=== PATIENT | female | born 1985 | race Caucasian/White ===

== ENCOUNTER 2020-08-13 19:28 | Emergency (ER) | payer MEDICARE, MEDICAID, SELFPAY ==
--- NOTE | 2020-08-13 19:30 | ED.GENADULT ---
HPI - General Adult General Chief complaint: Skin/Abscess/Foreign Body Stated complaint: swollen left hand Time Seen by Provider: 08/13/20 19:30 Source: patient Mode of arrival: ambulatory Limitations: no limitations History of Present Illness HPI narrative: 35-year-old female patient presents to the [facility] with complaints of a swollen left hand with erythema and warmth. Patient states that it started this morning when she woke up. Patient is type II diabetic but currently not been treated for this. Patient states that her A1c was pretty good but last was checked was a couple of years ago. Has not seen a doctor in a couple years due to the fact that she is recently moved to [place] from [place]. Patient states that she is also had a wound to her left upper arm for a while now . Patient states she was seen at [facility] emergency department yesterday however she states that they did not check any labs or do anything for her they simply looked at the wound told her she needed skin grafts and discharged her. Patient states she was not discharged home with any antibiotics. Denies any fevers body aches or chills that she is aware of. Related Data Home Medications Medication Instructions Recorded Confirmed No Home Medications 08/13/20 08/13/20 Allergies Allergy/AdvReac Type Severity Reaction Status Date / Time No Known Allergies Allergy Verified 08/13/20 19:45 Review of Systems Review of Systems: Narrative: CONSTITUTIONAL: Denies fever, chills, or sweats. EYES: Denies visual changes, redness, or discharge. ENT: Denies rhinorrhea, congestion, sore throat, or otalgia. CARDIOVASCULAR: Denies chest pain, palpitations, or edema. RESPIRATORY: Denies cough or dyspnea. GASTROINTESTINAL: Denies abdominal pain, nausea, vomiting, or diarrhea. GENITOURINARY: Denies dysuria or hematuria. SKIN: Denies rash or itching. Positive redness swelling to left hand with a chronic wound to the left forearm MUSCULOSKELETAL: Denies back pain, joint pain, or myalgia. NEUROLOGIC: Denies headache, numbness, or weakness. PSYCHIATRIC: Denies anxiety or depression. [facility] Past Medical History Medical History (Updated 08/13/20 @ 20:01 by ANTWAN Post) Diabetes Gout Surgical History Surgical History (Updated 08/13/20 @ 19:43 by ANTWAN Post) H/O eye surgery History of History of facial surgery Due to dog bite Comments At the time of my signature I agree with nursing past medical history, surgical, social, and family history. There is no relevant family history pertinent to the presenting complaint. Exam Narrative: Exam Narrative: GENERAL: Well-appearing, well-nourished, and in no acute distress. HEAD: Normocephalic, atraumatic. EYES: PERRLA and EOMI. ENT: Nares clear, no rhinorrhea or epistaxis. Mucous membranes moist. NECK: Supple. No lymphadenopathy CHEST: Clear to auscultation. No respiratory distress. HEART: Regular rate and rhythm. No murmur heard. Normal peripheral pulses. ABDOMEN: Soft, nontender, nondistended, normal active bowel sounds. EXTREMITIES: Normal range of motion. No edema. SKIN: Warm, dry, no rash. Patient has approximately 14.5 x 8 cm ulcer noted to the posterior left forearm. There is some surrounding erythema as well as some swelling, edema, erythema and warmth noted to the left hand. NEURO: No focal deficits. Alert and oriented x3. Course Vital Signs Vital signs: Vital Signs Temperature 36.6 C 08/13/20 19:36 Pulse Rate 76 08/13/20 19:36 Respiratory Rate 18 08/13/20 19:36 Blood Pressure 144/63 H 08/13/20 19:36 Pulse Oximetry 97 08/13/20 19:36 Temperature 36.6 C 08/13/20 19:36 Pulse Rate 76 08/13/20 19:36 Respiratory Rate 18 08/13/20 19:36 Blood Pressure 144/63 H 08/13/20 19:36 Pulse Oximetry 97 08/13/20 19:36 Vital signs reviewed Transfer Transfered to: [place] Transportation: Other (Private vehicle) Transfer rationale: Diabetic u
[2020-08-13 19:36] VITALS: BP 144/63; PULSE 76; RESP 18; TEMP 36.6; O2SAT 97
[2020-08-13 19:53] LABS: Glucose Point of Care 91 (65-105)
== END 2020-08-13 19:59 | disposition short-term general hospital (02) ==
PROVIDERS: Emergency Provider Nurse Practitioner Family
DX: E11.622 Type 2 diabetes mellitus with other skin ulcer (principal); L98.499 Non-pressure chronic ulcer of skin of other sites with unspecified severity; M10.9 Gout, unspecified; L03.114 Cellulitis of left upper limb
CPT/HCPCS: 82948; 99212; G0463

== ENCOUNTER 2020-08-14 13:54 | Emergency (ER) | payer MEDICARE, MEDICAID, SELFPAY ==
--- NOTE | ~2020-08-14 | XR_ITS ---
EXAMINATION: XR hand LT min 3V EXAM DATE: 08/14/2020 15:39 INDICATION: No known recent injury provided at this time. Pain of the left hand. TECHNIQUE: Left hand frontal, lateral and oblique projections obtained and reviewed. There is no celestine or study for comparison. FINDINGS: Left metacarpal bones are unremarkable. There are no acute fractures or dislocations ident ified. There is no subcutaneous gas. There is soft tissue swelling over the entire hand and wrist. There are no radiopaque foreign bodies. IMPRESSION: 1. Left hand exam without acute osseous findings. 2. Extensive soft tissue swelling. Reviewed, dictated and finalized at location A. 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
[2020-08-14 14:10] VITALS: BP 176/90; PULSE 70; RESP 20; TEMP 36.1; O2SAT 99
--- NOTE | 2020-08-14 15:24 | ED.GENADULT ---
HPI - General Adult General Chief complaint: Skin/Abscess/Foreign Body Stated complaint: arm lesion Time Seen by Provider: 08/14/20 14:04 Source: patient Mode of arrival: ambulatory Limitations: no limitations History of Present Illness HPI narrative: Patient is a 35-year-old female who presents to emergency department for evaluation of left hand pain and swelling for the last several days was seen at urgent care a day ago was advised to come to the ER did not tell today patient notes redness swelling and tenderness of the left hand worse with activity and movement mild pain patient notes history of chronic wounds to the bilateral forearms with history of IV drug abuse notes that she has not used intravenous drugs for the last 3 weeks and is currently in a methadone clinic patient denies fever chills nausea vomiting presents in no distress. Related Data Allergies Allergy/AdvReac Type Severity Reaction Status Date / Time No Known Allergies Allergy Verified 08/13/20 19:45 Review of Systems Review of Systems: All systems reviewed & are unremarkable except as noted in HPI and below PMFSH Past Medical History Medical History Diabetes Gout Surgical History Surgical History H/O eye surgery History of History of facial surgery Due to dog bite Social History Social History Gender identity (if verbalized by the patient): Female Exam Narrative: Exam Narrative: GENERAL: Well-appearing, obese, and in no acute distress. HEAD: Normocephalic, atraumatic. EYES: PERRLA and EOMI. ENT: Nares clear, no rhinorrhea or epistaxis. Mucous membranes moist. CHEST: Clear to auscultation. No respiratory distress. No wheezes rales or rhonchi HEART: Regular rate and rhythm. No murmur heard. Normal peripheral pulses. EXTREMITIES: Swelling with slight erythema of the right hand. Chronic ulcerations to the bilateral forearms no erythema or drainage. No lymphangitic streaking SKIN: Warm, dry, no rash. NEURO: No focal deficits. Alert and oriented x3. Neurovascularly intact. Capillary refill less than 2 seconds PSYCH: Normal mood and affect. Course Course Emergency Course: Patient presents with what appears to be cellulitis of the left hand patient does not want to stay in hospital noting that she has to leave will be given outpatient follow-up and antibiotics was given antibiotics in the emergency department no high risk changes in the blood work or imaging patient agrees with this plan and agrees to return if symptoms worsen Vital Signs Vital signs: Vital Signs Temperature 97.0 F L 08/14/20 14:10 Pulse Rate 70 08/14/20 14:10 Respiratory Rate 20 08/14/20 14:10 Blood Pressure 176/90 H 08/14/20 14:10 Pulse Oximetry 99 08/14/20 14:10 Temperature 97.0 F L 08/14/20 14:10 Pulse Rate 70 08/14/20 14:10 Respiratory Rate 20 08/14/20 14:10 Blood Pressure 176/90 H 08/14/20 14:10 Pulse Oximetry 99 08/14/20 14:10 Medical Decision Making MDM Narrative Medical decision making narrative: Patients injury or pain is consistent with musculoskeletal etiology. No signs of neurological or vascular compromise on exam. Compartments and tisues are soft without signs of compartment syndrome. Pain is felt appropriate for further evaluation on an outpatient basis. Patient afebrile nontoxic-appearing no distress will be treated outpatient for cellulitis Vital Signs Vital Signs: Vital Signs Temperature 97.0 F L 08/14/20 14:10 Pulse Rate 70 08/14/20 14:10 Respiratory Rate 20 08/14/20 14:10 Blood Pressure 176/90 H 08/14/20 14:10 Pulse Oximetry 99 08/14/20 14:10 Temperature 97.0 F L 08/14/20 14:10 Pulse Rate 70 08/14/20 14:10 Respiratory Rate 20 08/14/20 14:10 Blood Pressure 176/90 H 08/14/20 14:10 Pulse Oximetry 99
--- NOTE | 2020-08-14 15:49 | PC.NURSE ---
PT DIFFICULT STICK, ATTEMPTED IV WITHOUT SUCCESS, DEIDRE NELSON CONTACTED FOR ULTRASOUND IV PLACEMENT.
[2020-08-14 16:30] LABS: Basophils Percent Auto 0.3 % (0.2-1.2); Eosinophils Absolute Auto 0.2 K/mm3 (0-0.3); Eosinophils Percent Auto 1.6 % (0-4.4); Hematocrit 37.8 % (37.0-47.0); Hemoglobin 11.7 g/dL (12.0-15.0); Immature Granulocyte Absolute 0.06 K/mm3 (0.00-0.031); Immature Granulocyte Percent A 0.6 % (0-0.5); Lymphocytes Absolute Auto 1.46 K/mm3 (0.9-3.2); Lymphocytes Percent Auto 13.9 % (18.3-44.2); Mean Corpuscular Hemoglobin 25.4 pg (26-34); Mean Corpuscular Volume 82.2 fl (80-100); Monocytes Absolute Auto 0.4 K/mm3 (0.1-0.6); Monocytes Percent Auto 3.3 % (2.6-8.5); Neutrophils Absolute Auto 8.4 K/mm3 (1.3-6.7); Neutrophils Percent Auto 80.3 % (45.5-73.1); Platelet Count Result 334 k/mm3 (150-375); Red Cell Distribution Width 15.3 % (11.5-14.5); White Blood Count 10.5 K/mm3 (4.5-10.0)
[2020-08-14] MEDS: ceFAZolin 2 GM/D5W 50 ML 2 GM/50 ML BAG IVPB (16:30)
[2020-08-14 16:44] LABS: Anion Gap 5 mmol/L (8-16); Blood Urea Nitrogen 11 mg/dL (7-17); Calcium 8.6 mg/dL (8.4-10.2); Carbon Dioxide 35 mmol/L (22-30); Chloride 101 mmol/L (98-107); Estimated CRCL calculation 133 ml/min; Estimated Glomerular Filt Rate > 60; Glucose 133 mg/dL (65-105); Potassium 3.9 mmol/L (3.4-5.0); Sodium 141 mmol/L (137-145)
[2020-08-14 16:46] LABS: CRP 6.8 mg/dL (<1.0)
[2020-08-14 17:17] VITALS: BP 148/75; PULSE 92; RESP 18; O2SAT 100
== END 2020-08-14 17:22 | disposition home or self-care (01) ==
PROVIDERS: Emergency Medicine Emergency Medical Services; Emergency Provider Emergency Medicine
DX: L03.114 Cellulitis of left upper limb (principal); E11.9 Type 2 diabetes mellitus without complications; M10.9 Gout, unspecified
CPT/HCPCS: 36415; 73130; 80048; 85025; 86140; 96365; 99284; J0690

== ENCOUNTER 2024-12-25 13:17 | Emergency (ER) | payer MEDICARE, MEDICAID, SELFPAY ==
[2024-12-25 13:36] VITALS: BP 149/68; PULSE 85; RESP 20; TEMP 36.7; O2SAT 98
--- OUTSIDE RECORDS SUMMARY | 2024-12-25 14:09 | XMS_ITS | Clinical Summary ---
Author Organization [facility] Address [address] [place] [address] Phone Care Team Providers Care Construction Management Instructor Name Role Phone Provider, None Primary Care Provider Unavailabl e Allergies Active Allergy Reactions Criticality Noted Date Comments Duloxetine Hcl Anxiety 12/21/2020 Vancomycin Other (see Comments) 12/27/2022 red man syndrome Medications HYDROcodone-acet aminophen (NORCO) 5-325 MG Tablet Take 1-2 Tabs by mouth every 4 hours as needed for Pain. 20 Tab 7 Active Additional Information Patient not taking.Reported on 12/21/2020 METHADONE HCL PO Take 190 mg by mouth daily. Active silver sulfADIAZINE (SILVADENE) 1 % Cream Apply 2 times daily. Application Site:bileteral arm wound 400 g 0 Active FLUoxetine (PROzac) 20 MG Capsule Take 20 mg by mouth daily. 3 Active ALPRAZolam (XANAX) 0.5 MG Tablet 3 Active fluconazole (DIFLUCAN) 150 MG Tablet Take 150 mg by mouth. 5 Active Active Problems Problem Noted Date Diagnosed Date Hypertension 12/27/2022 Diabetes mellitus 12/27/2022 Asthma 12/27/2022 Anxiety 12/27/2022 Wound, open, arm, forearm, right, initial encoun ter 12/27/2022 Social History Tobacco Use Types Packs/Day Years Used Date Smoking Tobacco: Every Day Cigarettes Smokeless Tobacco: Never Alcohol Use Standard Drinks/Week Comments No 0 (1 standard drink = 0.6 oz pur e alcohol) Comments No Sex and Gender Information Value Date Recorded Sex Assigned at Not on file Legal Sex Female 10:35 PM CDT Gender Identity Not on file Sexual Orientation Not on file Last Filed Vital Signs Vital Sign Reading Time Taken Comments Blood Pressure 132/64 12/27/2022 2:15 PM CDT Pulse 66 12/27/2022 2:15 PM CDT Temperature 36.8 C (98.3 F) 12/27/2022 9:26 AM CDT Respiratory Rate 18 12/27/2022 9:26 AM CDT Oxygen Saturation 91% 12/27/2022 2:15 PM CDT Inhaled Oxygen Concentration - - Weight 156.2 kg (344 lb 5.7 oz) 12/27/2022 9:26 AM CDT Height 170.2 cm (5' 7 ) 12/27/2022 9:26 AM CDT Body Mass Index 53.93 12/27/2022 9:26 AM CDT Plan of Treatment Health Maintenance Due Date Last Done Comments Diabetes: Eye Exam 1984 Diabetes: Foot Exam 1984 Diabetes: Hemoglobin A1c 1984 Hepatitis C Virus (HCV) Screening 1984 Mammogram 1984 TdaP Immunization 1984 Hepatitis B Immunization (1 of 3 - 19+ 3-dose series) 2003 Pneumococcal Immunization Combined (1 of 2 - PCV) 2003 Pap Smear 2005 Cervical Cancer Screening (CCS) 2014 HPV/Cotest 2014 Diabetes: Nephropathy Screening 12/28/2023 3 Influenza Immunization (#1) 2024 SARS-COV-2 Immunization ( season) 2024 Discussion re Starting/Frequ ency of Mammograms 2024 Respiratory Syncytial Virus (RSV) Immunization (Adult) (1 - 1-dose 75+ series) 2059 DTaP/Tdap/Td Immunization Discontinued 03/05/2012 Meningococcal Immunization (ACWY) Aged Out No longer eligible based on patient's age to complete this topic Rotavirus Immunization Aged Out No lo nger eligible based on patient's age to complete this topic Procedures Procedure Name Priority Date/Time Associated Diagnosis Comments CMP (COMPREHENSIVE METABOLIC PANEL) STAT 12/27/2022 10:44 AM CDT from Last 3 Months or Most Recently Relevant to Health Maintenance Results * (ABNORMAL) Comprehensive Metabolic Panel (Cmp) [id number] (12/27/2022 10:44 AM CDT) SODIUM 132(L) 136 - 144 mmol/L 12/27/2022 11:05 AM CDT [facility] POTASSIUM 4.6 3.5 - 5.1 mmol/L 12/27/2022 11:05 AM CDT [facility] CHLORIDE 98(L) 100 - 110 mmol/L 12/27/2022 11:05 AM T [facility] CO2, VENOUS 28 22 - 32 mmol/L 12/27/2022 11:05 AM CDT [facility] ANION GAP 10.6 8.0 - 20.0 mmol/L 12/27/2022 11:05 AM CDT [facility] GLUCOSE 71 70 - 99 mg/dL 12/27/2022 11:05 AM CDT [facility] BUN 10 6 - 20 mg/dL 12/27/2022 11:05 AM T [facility] CREATININE, BLOOD 0.64 0.60 - 1.10 mg/dL 12/27/2022 11:05 AM T [facility] BUN/CREATININE RATIO 16 12 - 20 ratio 12/27/2022 11:05 AM T [facility] TOTAL PROTEIN 7.0 6.0 - 8.3 g/dL 12/27/2022 11:05 AM CDT [facility] ALBUMIN 3.5 3.5 - 5.2 g/dL 12/27/2022 11:05 AM T [facility] Comment: The colormetric methods used for the determination of Albumin may lead to falsely elevated test results in patients suffering from renal failure or insufficiency due to interference with other proteins. A/G RATIO 1.0 1.0 - 2.0 12/27/2022 11:[address] [facility] CALCIUM 9.0 8.9 - 10.3 mg/dL 12/27/2022 11:[address] [facility] T BILI <0.3 <=1.2 mg/dL 12/27/2022 11:[address] [facility] SGOT (AST) 17 <=32 U/L 12/27/2022 11:[address] [facility] SGPT (ALT) 13 <=41 U/L 12/27/2022 11:[address] [facility] ALKALINE PHOSPHATASE 82 35 - 105 U/L 12/27/2022 11:[address] [facility] GFR, ESTIMATED >60 >=60 12/27/2022 11:05 AM CDT [facility] Comment: Creatinine Clearance is the preferred criteria for selecting drug dose adjustments in renally impaired patients. The GFR is provided as additional pertinent clinical information. GFR is reported in mL/min/1.73 sq m. Calculation based on the Chronic Kidney Disease Epidemiology Collaboration (CKD- EPI) equation refit without adjustment for race. GFR, EST. >60 >=60 023 11:05 AM CDT [facility] GFR, EST. NONAFRICAN >60 >=60 12/27/2022 11:05 AM CDT [facility] Blood Venipuncture / Unknown 12/27/2022 10:44 AM CDT 12/27/2022 10:45 AM CDT us Mee Tai STAFF DESIGN ENGINEER, TECHNOLOGIES DIVISION CHAIR CHEMISTRY ORDERABLES Final Result [facility] [address] [place] [address] from Last 3 Months or Most Recently Relevant to Health Maintenance Additional Health Concerns Infection Onset Date Last Indicated MRSA 12/27/2022 12/27/2022 Insurance MEDICARE C [employer] Care Teams Construction Management Instructor Relationship Specialty Start Date End Date Provider, None [place] PCP - General 09/03/17
--- OUTSIDE RECORDS SUMMARY | 2024-12-25 14:10 | XMS_ITS | Clinical Summary ---
Author Organization [facility] Address [address] [place] [address] Care Team Providers Care Header Setup Operator Name Role Phone No, Physician Primary Care Provider [phone] Miscellaneous, Not In File Unavailable Unava ilable Allergies Active Allergy Reactions Criticality Noted Date Comments Clonazepam Other (See comments) Medium 02/04/2014 Drowsy Duloxetine Anaphylaxis,Nausea And Vomiting High 02/13/2011 Fish Containing Products Hives Medium 06/14/2018 Shellfish Containing Products Other (See comments) Reaction: Throat tightness, Medications methadone (DOLOPHINE) 10 mg tablet Take 32 tablets by mouth daily Active Active Problems Problem Noted Date Diagnosed Date Obstructive sleep apnea syndrome 05/13/2024 Sepsis with acute renal fail ure and tubular necrosis without septic shock 05/13/2024 IVELISSE (acute kidney injury) 05/10/2024 UTI (urinary tract infection) 05/10/2024 Drug withdrawal on maintenan ce opioid agonist therapy, no symptoms 05/09/2024 Cellulitis and abscess of leg 05/08/2024 Hepatitis C 05/08/2024 Open wound of multiple sites of left upper extremity without complication 11/03/2020 Abscess of antecubital fossa 10/10/2018 Assessment & Plan (10/10/2018 3:38 PM PRODUCTION LINE MECHANIC): Incision and drainage of the abscess in OR was recommended. Procedure was explained in detail and all patient questions were answered to her full satisfaction. She wishes to proceed with surgery. Thank you for this consultation. Depression with anxiety 10/02/2018 Diabetes type 2, controlled 10/02/2018 Assessment & Plan (10/02/2018 10:49 PM PRODUCTION LINE MECHANIC): Pt not currently on medications. Initiate SSI with hypoglycemia protocol. BG ACHS. Carb-consistent diet when resumed. Hypertension 10/02/2018 Assessment & Plan (10/02/2018 10:48 PM PRODUCTION LINE MECHANIC): Pt currently doesn't take medication. Recommend Heart-healthy diet when resumed. Vital signs per unit protocol. Will use IV antihypertensives if needed. Left arm cellulitis 10/02/2018 Assessment & Plan (10/02/2018 10:53 PM PRODUCTION LINE MECHANIC): -Cellulitis covering >50% of upper arm. Did not take outpatient antibiotic therapy. Pt does not meet sepsis criteria upon admission. BC results pending. Obtain wound culture. -Admit for treatment with IV antibiotics: Vancomycin and Zosyn. Control pain and fever with tylenol and toradol. -Obtain wound care consult. Per ER physician, surgery notified and agreed to consult. NPO after midnight. Tobacco abuse 10/02/2018 Assessment & Plan (10/02/2018 10:47 PM PRODUCTION LINE MECHANIC): Smoking cessation information and education and counseling provided. Nicotine patch available upon pt request. Hx polysubstance abuse- counseled on risks of use and benefits of cessation. UDS negative as obtained in ER. Noncompliance with treatment 12/29/2013 Asthma 02/13/2011 PCOS (polycystic ovarian syndrome) 02/13/2011 PTSD (post-traumatic stress disorder) 02/13/2011 Abscess of left arm Resolved Problems Problem Noted Date Diagnosed Date Resolved Date Hyponatremia 05/09/2024 05/12/2024 Sepsis 05/08/2024 05/13/2024 Immunizations Immunization Administration Dates Next Due Influenza, Trivalent, IM (MDV) 07/09/2009 Td, adsorbed 03/05/2012 Surgical History Surgery Date Site/Laterality Comments TONSILLECTOMY Tonsillectomy OTHER SURGICAL HISTORY 3 c sections OTHER SURGICAL HISTORY Eye surgery both eyes EYE SURGERY TONSILLECTOMY AND ADENOIDECTOMY INCISION AND DRAINAGE 10/03/2018 Left I&D Left Antecubital Fossa Medical History Medical History Date Comments Asthma Diabetes mellitus (HCC) Hypertension Hepatitis C PCOS (polycystic ovarian syndrome) Depression with anxiety Obstructive sleep apnea syndrome 05/13/2024 Family History Medical History Relation Name Comments Diabetes type II Father Diabetes me llitus type 2; Heart disease Father Cardiovascular disease; Throat cancer Mother Cancer, throat ; Leukemia Paternal Grandfather Leukemi a; Stroke Paternal Grandmother Stroke; Relation Name Status Comments Father Mother Paternal Grandfather Paternal Grandmother Social History Tobacco Use Types Packs/Day Years Used Date Smoking Tobacco: Every Day Cigarettes 2 15 Smokeless Tobacco: Never Alcohol Use Standard Drinks/Week Comments No 0 (1 standard drink = 0.6 oz pur e alcohol) [facility] Utilities Answer Date Recorded In the past 12 months has th e electric, gas, oil, or water company threatened to shut off services in your home? No 05/09/2024 Social Connection and Isolation Panel [NHANES] A nswer Date Recorded In a typical week, how many times do you talk on the phone with family, friends, or neighbors? Three times a week 05/09/2024 How often do you get togethe r with friends or relatives? Three times a week 05/09/2024 How often do you attend chur ch or samaritan services? Never 05/09/2024 Do you belong to any clubs o r organizations such as lutheran groups, unions, fraternal or athletic groups, or school groups? No 05/09/2024 How often do you attend meet ings of the clubs or organizations you belong to? Never 05/09/2024 Are you , , di vorced, , never , or living with a partner? 05/09/2024 Overall Financial Resource Strain (CARDIA) Answe r Date Recorded How hard is it for you to pa y for the very basics like food, housing, medical care, and heating? Not hard at all 05/09/2024 Hunger Vital Sign Answer Date Recorded Within the past 12 months, y ou worried that your food would run out before you got the money to buy more. Never true 05/09/20 24 Within the past 12 months, t he food you bought just didn't last and you didn't have money to get more. Never true 05/09/2024 PRAPARE - Transportation Answer Date Re corded In the past 12 months, has l ack of transportation kept you from medical appointments or from getting medications? No 06/2024 In the past 12 months, has l ack of transportation kept you from meetings, work, or from getting things needed for daily living? No 05/09/2024 Housing Stability Vital Sign Answer John e Recorded In the last 12 months, was t here a time when you were not able to pay the mortgage or rent on time? No 05/09/2024 In the past 12 months, how m any times have you moved where you were living? 0 05/09/2024 [facility] were you [facility] or living in a penitentiary (including now)? No 05/09/2024 Personal Safety Answer Date Recorded Have you ever been in or are you currently in a harmful physical or emotional relationship or is someone making you feel afraid or unsafe? Denies 05/09/2024 Comments No Sex and Gender Information Value Date Recorded Sex Assigned at Not on file Legal Sex Female 4:09 AM PRODUCTION LINE MECHANIC Gender Identity Female 06/17/2024 11:35 AM CDT Sexual Orientation Not on file Obstetrics History Last Filed Vital Signs Vital Sign Reading Time Taken Comments Blood Pressure 126/61 05/13/2024 7:30 AM CDT Pulse 67 05/13/2024 7:30 AM CDT Temperature 36.2 C (97.1 F) 05/13/2024 7:30 AM CDT Respiratory Rate 17 05/13/2024 7:30 AM CDT Oxygen Saturation 97% 05/13/2024 7:30 AM CDT Inhaled Oxygen Concentration - - Weight 141 kg (310 lb 13.6 oz) 05/09/2024 1:47 A M CDT Height 165.1 cm (5' 5 ) 05/09/2024 1:47 AM CDT Body Mass Index 51.73 05/09/2024 1:47 AM CDT Plan of Treatment Health Maintenance Due Date Last Done Comments Albumin Creatinine Ratio, Urine 1984 Breast Cancer Screening-Mammogram 1984 Cervical Cancer Screening 1984 Depression Screening 1984 Dilated Eye Exam 1984 Foot Exam 1984 Varicella Vaccines (1 of 2 - 13+ 2-dose series) 1997 Hepatitis B Screening 2002 Regular Well Visit/Exam 18-64 2002 Pneumococcal vaccine <65 (1 of 2 - PCV) 2003 DTaP/Tdap/Td Vaccine (1 - Tdap) 03/06/2012 03/05/2012 Hemoglobin A1C 04/02/2019 10/03/2018, 06/14/2018 Lipid Panel 12/11/2021 12/11/2020 Influenza Vaccine (#1) 2024 07/09/2009 eGFR 05/13/2025 05/13/2024, 05/01, 05/11/2024, Additional history exists Hepatitis C Screening Completed 05/08/2024 , 05/08/2024, 06/14/2018, Additional history exists HPV Vaccines Aged Out No longer eligi ble based on patient's age to complete this topic Procedures Procedure Name Priority Date/Time Associated Diagnosis Comments EGFR Routine 05/13/2024 6:24 AM CDT LIPID PANEL Routine 12/11/2020 9:17 AM PRODUCTION LINE MECHANIC HEMOGLOBIN A1C Add-On 10/03/2018 5:53 AM PRODUCTION LINE MECHANIC HEPATITIS C ANTIBODY STAT 06/14/2018 7:24 PM CDT from Last 3 Months or Most Recently Relevant to Health Maintenance Results * (ABNORMAL) eGFR (05/13/2024 6:24 AM CDT) eGFR 26(L) >=60 mL/min/1. 73 m2 Comment: Interpretive Data Reference Interval Normal >/= 90 mL/min/1.73m2 Mildly decreased* 60 - 89 mL/min/1.73m2 Mildly to moderately decreased 45 - 59 mL/min/1.73m2 Moderately to severely decreased 30 - 44 mL/min/1.73m2 Severely decreased 15 - 29 mL/min/1.73m2 Kidney Failure < 15 mL/min/1.73m2 *Relative to young adult level Estimated glomerular filtration rate is determined by the 2020 CKD-EPI equation recommended by the National Kidney Foundation (A Unifying Approach to GFR Estimation: Recommendations of the NKF-ASK Task Force on Reassessing the Inclusion of Race in Diagnosing Kidney Disease, SN 2020). The CKD-EPI equation should not be used for patients with unstable renal function and has not been validated in children and those over 70. Current interpretive data was last reviewed 2021. Blood 05/13/2024 6:24 AM CDT 05/13/2024 6:26 AM CDT us Trevor Cárdenas Jr., MD LAB BLOOD ORDERABLE S Final Result ISHAAN BRISENO ([place]) 1 [facility] Department [place] [address] * (ABNORMAL) Lipid panel (12/11/2020 9:17 AM PRODUCTION LINE MECHANIC) Cholesterol 99 30 - 199 mg/dL ISHAAN BRISENO ([place]) Comment: Interpretive Data Ages < or = 19 years Acceptable: <170 mg/dL Borderline high: 170-199 mg/dL High: >or= 200 mg/dL Ages > or = 20 years Desirable: <200 mg/dL Borderline high: 200-239 mg/dL High: >or= 240 mg/dL Literature References: 1. Expert Panel on Integrated Guidelines for Cardiovascular Health and Risk Reduction in Children and Adolescents. Pediatrics 2011;128:S213 2. NCEP Expert Panel. Circulation 2004;110:227 Current Interpretive Data was last revised on 2018. Triglycerides 91 <=149 mg/dL ISHAAN BRISENO ([place]) Comment: Interpretive Data Ages < or = 9 years Acceptable: <75 mg/dL Borderline high: 75-99 mg/dL High: >or= 100 mg/dL Ages 10 to 20 years Acceptable: <90 mg/dL Borderline high: 90-129 mg/dL High: >or= 130 mg/dL Ages > or = 20 years Desirable: <150 mg/dL Borderline high: 150-199 mg/dL High: 200-499 mg/dL Very high: >or= 499 mg/dL Literature References: 1. Expert Panel on Integrated Guidelines for Cardiovascular Health and Risk Reduction in Children and Adolescents. Pediatrics 2011;128:S213 2. NCEP Expert Panel. Circulation 2004;110:227 Current Interpretive Data was last revised on 2018. HDL 22(L) >=40 mg/dL ISHAAN Palmer ([place]) Comment: Interpretive Data Ages < or = 19 years Acceptable: >45 mg/dL Borderline low: 40-45 mg/dL Low: <40 mg/dL Ages > or = 20 years Desirable: >or= 60 mg/dL Low: <40 mg/dL Literature References: 1. Expert Panel on Integrated Guidelines for Cardiovascular Health and Risk Reduction in Children and Adolescents. Pediatrics 2011;128:S213 2. NCEP Expert Panel. Circulation 2004;110:227 Current Interpretive Data was last revised on 2018. LDL, calculated 59 <=129 mg/dL ISHAAN BRISENO ([place]) Comment: Interpretive Data Ages < or = 19 years Acceptable: <110 mg/dL Borderline high: 110-129 mg/dL High: >or= 130 mg/dL Ages > or = 20 years Optimal: <100 mg/dL Near optimal: 100-129 mg/dL Borderline high: 130-159 mg/dL High: >160 mg/dL Literature References: 1. Expert Panel on Integrated Guidelines for Cardiovascular Health and Risk Reduction in Children and Adolescents. Pediatrics 2011;128:S213 2. NCEP Expert Panel. Circulation 2004;110:227 Current Interpretive Data was last revised on 2018. Non-HDL Cholesterol 77 mg/dL ISHAAN BRISENO ([place]) Comment: Interpretive Data Ages < or = 19 years Acceptable: <120 mg/dL Borderline high: 120-144 mg/dL High: >145 mg/dL Ages > or = 20 years When triglycerides are >200 mg/dL, Non-HDL cholesterol is a secondary target of therapy with treatment goals that are 30 mg/dL greater than the LDL cholesterol target. Literature References: 1. Expert Panel on Integrated Guidelines for Cardiovascular Health and Risk Reduction in Children and Adolescents. Pediatrics 2011;128:S213 2. NCEP Expert Panel. Circulation 2004;110:227 Current Interpretive Data was last revised on 2018. Chol/HDL ratio 4 YSABEL BRISENO ([place]) Blood specimen (specimen) 12/11/2020 9:17 AM PRODUCTION LINE MECHANIC 12/11/2020 10:42 AM PRODUCTION LINE MECHANIC Narrative ISHAAN BRISENO ([place]) - 12/11/2020 11:26 AM PRODUCTION LINE MECHANIC FAX [phone] us Ming Franks MD LAB BLOOD ORDERABLES Final Res ult ISHAAN [facility] ([place]) 1 [facility] Department [place] [address] * Hemoglobin A1c (10/03/2018 5:53 AM PRODUCTION LINE MECHANIC) Pathologist [facility] Hgb A1C 5.5 4.0 - 5.6 % [facility] ([place]) Estimated Average Glucose 111 mg/dL [facility] ([place]) Comment: The ADA recommends reporting an estimated Average Glucose (eAG) with all Hemoglobin A1c results using the equation derived from a study of 507 normal and diabetic adults. Minority populations were underrepresented and children were not included. (Diabetes Care 31:1027-9969, 2008). The eAG is not equivalent to a fasting glucose. Blood specimen (specimen) 10/03/2018 5:53 AM PRODUCTION LINE MECHANIC 10/03/2018 10:52 AM PRODUCTION LINE MECHANIC Narrative [facility] ([place]) - 10/03/2018 11:13 AM PRODUCTION LINE MECHANIC us Byron Velazco MD LAB BLOOD ORDERABLES Final Resul t [facility] ([place]) [address] [place] [address] Department [place] [address] * (ABNORMAL) Hepatitis C antibody (06/14/2018 7:24 PM CDT) [facility] Hep C Ab Reactive(C ) Non-Reacti ve [facility] ([place]) Comment: Critical result called to and read back by Marcelo Noguera on 06/15 1355pm to [id number] Testing performed by: [facility] [facility], [place]., [address] Blood specimen (specimen) 06/14/2018 7:24 PM CDT 06/15/2018 12:23 PM CDT Narrative [facility] ([place]) - 06/15/2018 1:55 PM CDT Byron Velazco MD LAB MICROBIOLOGY - GENERAL ORDER ELDER Final Result ISHAAN [facility] ([place]) [address] Department of Laboratories [place] [address] from Last 3 Months or Most Recently Relevant to Health Maintenance Insurance MEDICARE [facility] MEDICARE [facility] MEDICARE [facility] MEDICARE [place] Advance Directives For more information, please contact: [phone] * Full Code (Latest Code Status on File) Date Activated Date Inactivated Comments 05/09/2024 2:05 AM 05/13/2024 5:57 PM * Full Code Date Activated Date Inactivated Comments 10/02/2018 11:21 PM 10/03/2018 4:55 PM * Full Code Date Activated Date Inactivated Comments 06/14/2018 2:41 PM 06/15/2018 8:34 PM Care Teams Header Setup Operator Relationship Specialty Start Date End Date No, Physician PCP - General 02/14/17 Miscellaneous, Not In File 05/13/24
--- OUTSIDE RECORDS SUMMARY | 2024-12-25 14:10 | XMS_ITS | Referral Summary ---
Author Organization [facility] Address [address] [place] [address] Care Team Providers Care Channel Lip Wetter Name Role Phone No, Physician Primary Care Provider [phone] Miscellaneous, Not In File Unavailable Unava ilable [...] 10/10/2018 Assessment & Plan (10/10/2018 3:38 PM SOLAR FIELD SERVICE TECHNICIAN): Incision and drainage of the abscess in OR was recommended. Procedure was explained in detail and all patient questions were answered to her full satisfaction. She wishes to proceed with surgery. Thank you for this consultation. Depression with anxiety 10/02/2018 Diabetes type 2, controlled 10/02/2018 Assessment & Plan (10/02/2018 10:49 PM SOLAR FIELD SERVICE TECHNICIAN): Pt not currently on medications. Initiate SSI with hypoglycemia protocol. BG ACHS. Carb-consistent diet when resumed. Hypertension 10/02/2018 Assessment & Plan (10/02/2018 10:48 PM SOLAR FIELD SERVICE TECHNICIAN): Pt currently doesn't take medication. Recommend Heart-healthy diet when resumed. Vital signs per unit protocol. Will use IV antihypertensives if needed. Left arm cellulitis 10/02/2018 Assessment & Plan (10/02/2018 10:53 PM SOLAR FIELD SERVICE TECHNICIAN): -Cellulitis covering >50% of upper arm. Did [...] 10/02/2018 Assessment & Plan (10/02/2018 10:47 PM SOLAR FIELD SERVICE TECHNICIAN): Smoking cessation information and education and counseling [...] Trivalent, IM (MDV) 07/09/2009 Td, adsorbed 03/05/2012 Social History Tobacco Use Types Packs/Day Years Used Date Smoking Tobacco: Every Day Cigarettes 2 15 Smokeless Tobacco: Never Alcohol Use Standard Drinks/Week Comments No 0 (1 standard drink = 0.6 oz pur e alcohol) [facility] Utilities Answer Date Recorded In the past 12 months has th e electric, gas, oil, or water [employer] threatened to shut off services in your [...] often do you attend chur ch or taoist services? Never 05/09/2024 Do you belong to any clubs o r organizations such as adventist groups, unions, fraternal or athletic groups, or [...] any time in the past 12 m [facility], were you homeless or living in a alf (including now)? No 05/09/2024 Personal Safety Answer Date Recorded Have you ever been in or are you currently in a harmful physical or emotional relationship or is someone making you feel afraid or unsafe? Denies 05/09/2024 Comments No Sex and Gender Information Value Date Recorded Sex Assigned at Not on file Legal Sex Female 4:09 AM SOLAR FIELD SERVICE TECHNICIAN Gender Identity Female 06/17/2024 11:35 AM CDT Sexual Orientation Not on file Last Filed [...] 05/09/2024 1:47 AM CDT Plan of Treatment Not on file Procedures Procedure Name Priority Date/Time Associated Diagnosis Comments EGFR Routine 05/13/2024 6:24 AM CDT LIPID PANEL Routine 12/11/2020 9:17 AM SOLAR FIELD SERVICE TECHNICIAN HEMOGLOBIN A1C Add-On 10/03/2018 5:53 AM SOLAR FIELD SERVICE TECHNICIAN HEPATITIS C ANTIBODY STAT 06/14/2018 7:24 PM [...] Inclusion of Race in Diagnosing Kidney Disease, JASN 2020). The CKD-EPI equation should not be used for patients with unstable renal function and has not been validated in children and those over 70. Current interpretive data was last reviewed 2021. Blood 05/13/2024 6:24 AM CDT 05/13/2024 6:26 AM CDT us Trevor Cárdenas Jr., MD LAB BLOOD ORDERABLE S Final Result ISHAAN BRISENO ([place]) 1 [facility] Department [place] [address] * (ABNORMAL) Lipid panel (12/11/2020 9:17 AM SOLAR FIELD SERVICE TECHNICIAN) Cholesterol 99 30 - 199 mg/dL ISHAAN [...] Pediatrics 2011;128:S213 2. NCEP Expert Panel. Circulation 2003;110:227 Current Interpretive Data was last revised on [...] Pediatrics 2011;128:S213 2. NCEP Expert Panel. Circulation 2003;110:227 Current Interpretive Data was last revised on 2018. Chol/HDL ratio 4 YSABEL BRISENO ([place]) Blood specimen (specimen) 12/11/2020 9:17 AM SOLAR FIELD SERVICE TECHNICIAN 12/11/2020 10:42 AM SOLAR FIELD SERVICE TECHNICIAN Narrative ISHAAN REPLACED BY [facility] ([place]) - 12/11/2020 11:26 AM SOLAR FIELD SERVICE TECHNICIAN FAX [phone] us Ming Franks MD LAB BLOOD ORDERABLES Final Res ult [facility] ([place]) 1 [facility] Department [place] [address] * Hemoglobin A1c (10/03/2018 5:53 AM SOLAR FIELD SERVICE TECHNICIAN) [facility] Hgb A1C 5.5 4.0 - 5.6 % [facility] ([place]) Estimated Average Glucose 111 mg/dL [facility] ([place]) Comment: The ADA recommends reporting an estimated Average Glucose (eAG) with all Hemoglobin A1c results using the equation derived from a study of 507 normal and diabetic adults. Minority populations were underrepresented and children were not included. (Diabetes Care 31:5381-8413, 2008). The eAG is not equivalent to a fasting glucose. Blood specimen (specimen) 10/03/2018 5:53 AM SOLAR FIELD SERVICE TECHNICIAN 10/03/2018 10:52 AM SOLAR FIELD SERVICE TECHNICIAN Narrative [facility] ([place]) - 10/03/2018 11:13 AM SOLAR FIELD SERVICE TECHNICIAN us Byron Velazco MD LAB BLOOD ORDERABLES Final Resul t Performing Organization Address City/[facility]/ZIP Co de Phone Number [facility] ([place]) [address] [facility] Department of Laboratories [place] [address] * (ABNORMAL) Hepatitis C antibody (06/14/2018 7:24 PM CDT) [facility] Hep C Ab Reactive(C ) Non-Reacti ve [facility] ([place]) Comment: Critical result called to and read back by Marcelo Noguera on 06/15 1355pm to [id number] Testing performed by: [facility], [facility], [place]., [address] Blood specimen (specimen) 06/14/2018 7:24 PM CDT 06/15/2018 12:23 PM CDT Narrative ISHAAN [facility] ([place]) - 06/15/2018 1:55 PM CDT Byron Velazco MD LAB MICROBIOLOGY - GENERAL ORDER ELDER Final Result ISHAAN [facility] ([place]) [address] [place] [address] from Last 3 Months or Most Recently Relevant to Health Maintenance Insurance MEDICARE [facility] Address: [address] [address] [place] [address] [place] MEDICARE [facility] MEDICARE [facility] MEDICARE [facility] Address: [address] [address] [place] [address] [place] Advance Directives For more information, please contact: [phone] * Full Code (Latest Code Status on File) Date Activated Date Inactivated Comments 05/09/2024 2:05 AM 05/13/2024 5:57 PM * Full Code Date Activated Date Inactivated Comments 10/02/2018 11:21 PM 10/03/2018 4:55 PM * Full Code Date Activated Date Inactivated Comments 06/14/2018 2:41 PM 06/15/2018 8:34 PM Care Teams Channel Lip Wetter Relationship Specialty Start Date End Date No, Physician PCP - General 02/14/17 Miscellaneous, Not In File 05/13/24
--- NOTE | 2024-12-25 14:24 | ED_ITS ---
HPI - URI/Sore Throat General Chief Complaint: Upper Respiratory Infection Stated Complaint: upper respiratory Time Seen by Provider: 12/25/24 14:25 Source: patient, RN notes reviewed and old records reviewed Mode of arrival: ambulatory Limitations: no limitations History of Present Illness HPI Narrative: 39 year old female accompanied with children presents to express care with complaints of cough with congestion, upper chest discomfort with cough for the past 5 days. Patient reports some feelings of dyspnea with activity and cough. Patient reports that she has not had any known fevers, chills or sweats or any body aches., reports some sinus drainage also. Patient admits to daily tobacco abuse of approximately 1 ppd. MD elicited complaint: cough and other (wheezing, some dyspnea) Pertinent past history: other (tobacco abuse) Onset (ago): day(s) (5) Severity: moderate Able to tolerate fluids by mouth: Yes Treatments prior to arrival: none Related Data Home Medications ?Medication ?Instructions ?Recorded ?Confirmed ?Last Taken ?Type alprazolam 0.5 mg tablet mg 12/25/24 Unknown History fluoxetine 20 mg capsule mg 12/25/24 Unknown History Allergies Allergy/AdvReac Type Severity Reaction Status Date / Time No Known Allergies Allergy Verified 12/25/24 14:35 Review of Systems Review of Systems: CONSTITUTIONAL: Denies malaise, chills, sweats, or fever. EYES: Denies visual changes, redness, or discharge. ENT: Reports rhinorrhea, congestion, no sinus pain, no otalgia and no sore throat. CARDIOVASCULAR: Denies chest pain, palpitations, or edema. RESPIRATORY: Reports cough.?Reports some dyspnea with cough and exertion with some upper chest discomfort with cough GASTROINTESTINAL: Denies abdominal pain, nausea, vomiting, diarrhea SKIN: Denies rash or itching. MUSCULOSKELETAL: Denies myalgia. NEUROLOGIC: Denies headache. 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 There is no relevant family history pertinent to the presenting complaint Exam Narrative: GENERAL: Well-appearing, well-nourished, obese and in no acute distress. HEAD: Normocephalic EYES: PERRLA, conjunctivae clear ENT: Nares clear, turbinates edematous and erythematous, clear discharge. Mucous membranes moist. TM pearly kay with dull light reflex bilaterally; no tragal tenderness. Oropharynx erythematous without lesions. Tonsils not enlarged and without exudate, no drooling, no hoarseness, no trismus, uvula midline.post nasal drainage NECK: Supple. No lymphadenopathy CHEST: Coarse scattered wheezing noted on auscultation, breath sounds equal.positive for wheezing, no rhonchi, rales, or stridor. No respiratory distress, speaks in full sentences.cough noted reports some dyspnea with a ctivity SAO2 98% on room air, HEART: Regular rate and rhythm. No murmur heard. SKIN: Warm, dry, no rash. NEURO: Alert and oriented x3. PSYCH: Normal mood and affect Course Course Emergency Course: Patient is aware of diagnosis, understands and agrees to treatment plan.? Anticipatory guidance given.? Patient agrees to follow-up as directed and is aware of reasons to seek care at the emergency department. Portions of this record may have been created with voice recognition software Level of Care: Express Care Visit Vital Signs Vital signs: Vital Signs Temperature 36.7 C 12/25/24 13:36 Pulse Rate 85 12/25/24 13:36 Respiratory Rate 12/25/24 13:36 Blood Pressure 149/68 H 12/25/24 13:36 Pulse Oximetry 98 12/25/24 13:36 Oxygen Delivery Room Air 12/25/24 13:36 Temperature 36.7 C 12/25/24 13:36 Pulse Rate 85 12/25/24 13:36 Respiratory Rate 20 12/25/24 13:36 Blood Pressure 149/68 H 12/25/24 13:36 Pulse Oximetry 98 12/25/24 13:36 Oxygen Delivery Room Air 12/25/24 13:36 Reviewed MDM - URI/Sore Throat MDM Narrative Medical decision making narrative: Differential diagnosis considered: Jameson virus, strep pharyngitis, allergic rhinitis, upper respiratory tract infection, sinusitis, rhinosinusitis, nasopharyngitis. viral pharyngitis, otitis media, otitis externa, pneumonia, bronchitis, viral cough syndrome, viral syndrome, and influenza.? Exam findings show no acute concerns or changes; patient is non-toxic appearing and is in no distress.? Patient is appropriate for outpatient treatment and follow-up. Differential Diagnosis Differential diagnosis: Likely upper respiratory infection, bronchitis and other (cough, wheezing) Medical Records Attestation: I reviewed the patient's medical records. Lab Data Attestation: I reviewed the patient's lab results. Critical Care Time Critical Care Time Critical Care Time: No Discharge Plan Discharge Clinical Impression: Wheezing, Bronchitis Upper respiratory infection Qualifiers: URI type: unspecified URI Qualified Code(s): J06.9 - Acute upper respiratory infection, unspecified Patient Disposition: Home, Self-Care Condition: Stable Instructions: Antibiotic Form, Acute Bronchitis (ED) Additional Instructions: Increase fluids especially juices and water [id number] cough and cold medicine of your choice for your symptoms Zyrtec Claritin or Quin daily Continue your inhaler/nebulizer as directed Steroids as directed--take with food heat to the face 20-30 minutes 4-6 times a day for pain Salt water gargles, throat lozenges or throat sprays as desired Tylenol or ibuprofen for any fever pain If your symptoms persist, change or worsen significantly before you can contact your personal physician then please, without delay, go to the emergency department for further evaluation. Follow-up with PCP in 7-10 days or sooner if needed Follow up with PCP soon in regards to your blood pressure which is elevated above threshold for referral. Blood pressure above 120/80 may indicate pre-hypertension. 149/68 Patient Language: Kiswahili Prescriptions: New albuterol sulfate [Ventolin HFA] 90 mcg/actuation HFA aerosol inhaler 2 puff inhalation QID PRN (Reason: shortness of breath or wheezing) Qty: 6.7 0RF prednisone 20 mg tablet 40 mg PO DAILY Qty: 10 0RF Rx Instructions: Take in a.m. with food No Action alprazolam 0.5 mg tablet fluoxetine 20 mg capsule Follow-up/Referrals: PHYSICIAN,RESEARCH PHYSIOLOGIST [Primary Care Provider] - Time of Disposition: 14:42 Quality Pratik Coma Scale Eyes: Open Verbal: Oriented and Alert Motor: Follows Commands [place] Coma Total Score: 15
== END 2024-12-25 15:00 | disposition home or self-care (01) ==
PROVIDERS: Emergency Provider Registered Nurse
DX: R06.2 Wheezing (principal); J40 Bronchitis, not specified as acute or chronic; J06.9 Acute upper respiratory infection, unspecified; F17.210 Nicotine dependence, cigarettes, uncomplicated; E11.9 Type 2 diabetes mellitus without complications; M10.9 Gout, unspecified
CPT/HCPCS: 99213; G0463